=== PATIENT | female | born 1995 | race Hispanic/Latino ===

== ENCOUNTER 2022-10-30 19:30 | Emergency (ER) | payer MEDICAID ==
[2022-10-30] MEDS ORDERED: ADDERALL 7.5 M7.5 MG PO (21:03)
[2022-10-30] MEDS ORDERED: TRAZODONE HCL50 MG PO (21:03)
[2022-10-30] MEDS ORDERED: LEXAPRO10 MG PO (21:04)
[2022-10-30] MEDS ORDERED: ADDERALL 20 MG20 MG PO (21:15)
--- OUTSIDE RECORDS SUMMARY | 2022-10-30 22:32 | XMS ---
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 ELinda VISIT COUNT (12 MO.) 2 Rory Guardado [address] [place] [address] TOTAL 3 NOTE: Visits indicate total known visits. ED/UCC VISIT TRACKING (12 MO.) 10/30/2022 19:32 [facility] [place] TYPE: Emergency COMPLAINT: - LOWER ABD/BACK PAIN [facility] DIAGNOSES: - Acute laryngitis - Acute upper respiratory infection, unspecified 08/12/2022 17:51 [facility] TYPE: Emergency DIAGNOSES: - Unspecified abdominal pain INPATIENT VISIT TRACKING (12 MO.) No inpatient visits to display in this time frame [email or web address]
[2022-10-30] MEDS ORDERED: CEPHALEXIN500 M1 PO (22:34)
[2022-10-30] MEDS ORDERED: PYRIDIUM200 MG PO (22:35)
[2022-10-30 22:50] VITALS: BP 134/94
== END 2022-10-30 22:50 | disposition home or self-care (01) ==
LOC: ED 19:30
DX: N39.0 Urinary tract infection, site not specified (principal); G47.00 Insomnia, unspecified; Z79.899 Other long term (current) drug therapy
CPT/HCPCS: 81001; 84703; 99283; A9270